=== PATIENT | female | born 1935 | race Caucasian/White ===

== ENCOUNTER 2018-12-20 16:19 | Inpatient (IN) ==
--- NOTE | 2018-12-20 16:41 | ERNOTE ---
Lower Extremity HPI - Narrative Date of Service: 12/20/18 - General Lower Extremities Pain: leg: left Time Seen by Provider: 12/20/18 16:19 Source: patient Exam Limitations: no limitations - Immun/Allergies/Home Medications Immunizations: IMMUNIZATION HX Immunizations Up to Date Yes History of Influenza Vaccine Yes Hx Pneumococcal Vaccination Yes Allergies/Adverse Reactions: Allergies Allergy/AdvReac Type Severity Reaction Status Date / Time No Known Allergies Allergy Verified 12/20/18 16:24 Home Medications: HOME MEDICATIONS Atenolol [Tenormin] 50 mg PO DAILY 06/30/15 [Last Taken 07/07/15 07:00] Aspirin [Aspirin Enteric Coated] 325 mg PO DAILY 07/02/15 [Last Taken 06/30/15] Beta-Carotene(A) W-C , E/Min [Ocuvite] 1 tab PO DAILY 07/02/15 [Last Taken Unknown] Calcium Carbonate/Vitamin D3 [Calcium 600 + D Tablet] 2 each PO DAILY 07/02/15 [Last Taken Unknown] [place]-3 Fatty Acids/Fish Oil [Fish Oil 1,000 mg Capsule] 1 each PO DAILY 07/02/15 [Last Taken Unknown] Sennosides/Psyllium Husk [Senna Prompt Capsule] 1 each PO Q2D 07/02/15 [Last Taken Unknown] Amlodipine Besylate 20 mg PO DAILY 02/02/16 [Last Taken Unknown] - Pain Score Pain Score #1 Pain Score: 3 - History of Present Illness Narrative: The patient is a 83 year old female who presents for left leg pain after fall which occurred 1 hour [employer]. There are associated symptoms of exposure to elements for 1 hour after fall. The patient reports left lower extremity pain, 3/10. There are alleviating factors of immobilization. There are aggravating factors of movement to left lower extremity. Previous treatments have included: received Fentanyl 150mcg via EMS. The past medical history includes: HTN and anxiety. The social history is positive for former smoker. The patient has had no ill contacts. Patient states she was walking outside her home when she slipped on the ice falling on left hip. Patient denies recall of striking head or LOC. Patient states she was unable to get up and laid on the ground exposed to the elements for approximately 1 hour before a neighbor found her. Occurred: just prior to arrival Location of Incident: home Method of Injury: Reports: fell Reason for Fall: Reports: slipped Loss of Consciousness: Reports: no loss of consciousness Other Injuries: Reports: none Review of Systems - Review of Systems Constitutional: Present: no symptoms reported. Absent: recent illness, fever, fatigue EYE: Present: no symptoms reported ENT: Present: no symptoms reported. Absent: ear pain, nasal drainage, sore throat Respiratory: Present: no symptoms reported. Absent: shortness of breath, cough Cardiology: Present: no symptoms reported. Absent: chest pain Gastrointestinal/Abdominal: Present: no symptoms reported. Absent: nausea, vomiting, diarrhea, abdominal pain Genitourinary: Present: no symptoms reported. Absent: dysuria Musculoskeletal: Present: joint pain. Absent: back pain, neck pain Skin: Present: no symptoms reported. Absent: rash Neurological: Present: no symptoms reported. Absent: headache, numbness, tingling Endocrine: Present: no symptoms reported Hematologic/Lymphatic: Present: no symptoms reported Psych: Present: no symptoms reported All Other Systems: All systems neg except as marked Social History: Preferred Language Maori Do you have any congregational or No cultural preference? Smoking Status Former smoker Have you smoked in the past 12 No months Do you dip or chew tobacco No Abuse History No History of abuse Psych History Hx of Anxiety Alcohol Use none Drug Use none No Social History Section defined Physical Exam - Physical Exam General Appearance: Present: wd/wn, alert, mild distress, crying Head Exam: Present: normal inspection, no evidence of injury, no tenderness w palpation Eye Exam: Normal inspection: bilateral, PERRL: bilateral, EOMI: bilateral Neck: Present: normal inspection, nontender, full range of motion - after removal from backboard and clearance with CT cervical Respiratory: Present: no respiratory distress, normal breath sounds, no accessory muscle use, chest nontender, lungs clear Cardiovascular/Chest: Present: no murmur, bradycardia Peripheral Pulses: N=norm/S=strong/W=weak/B=bound/A=absent: Dorsalis-pedis (L): Normal Gastrointestinal/Abdominal: Present: normal bowel sounds, nontender, nondistended, soft, no organomegaly Extremity Exam: Present: bony tenderness - proximal femur, deformity noted, other - shortening and external rotation of left lower extremity Neurological Exam: Present: alert, oriented, normal mood/affect, no motor/sensory deficits Skin Exam: Present: normal color, warm/dry Progress - Date and Time Seen: Date and Time: 12/20/18 17:44 Patient removed from backboard. No vertebral pain. No wounds. Slight erythema to upper back and over coccyx but blanchable with cap refill < 3 sec. 12/20/18 17:58 Notified Lance BASS of left displaced femur fracture. 12/20/18 18:44 Discussed case with Lance BASS and will plan for surgical intervention to left femur fracture tomorrow am pending medical clearance. Discussed case with and notified of orthopedic plan. Patient will be admitted for femur fracture and continued monitoring. - Results and Orders Patient's Lab Results:: I have reviewed the patient's lab results. - Vital Signs Patient's Vital Signs:: I have reviewed the patient's vital signs. Vital Signs: Vital Signs 12/20/18 16:20 Temperature 36.6 C Pulse Rate 57 L Respiratory Rate 15 Blood Pressure 133/118 H O2 Sat by Pulse Oximetry 97 - EKG EKG #1 EKG: NSR - bradycardia P54, RBBB EKG read: Reviewed by me - X-Ray X-Ray #1 X-Ray: femur Interpretation: Reviewed by me X-ray Comments: X-RAY REPORT ~[id number] RAD/Femur 2 Views LT *~ Exam Date: 12/20/2018 16:21 Ordering Physician: Ana ROLON HISTORY/INDICATION: fall, deformity Additional history from technologist: Slipped fell on ice today. Pain in left leg. Left hip deformity TECHNIQUE: AP and lateral views of the Left Femur. 4 images. COMPARISONS: None available. Femur 2 Views LT * There is a comminuted fracture of the proximal left femur, at the intertrochanteric/subtrochanteric location. The fracture at the subtrochanteric region appears to demonstrate a spiral morphology and based on these images, there may be a rotational component to the displacement of the distal fragment. There is no evidence for dislocation at the left hip or the left knee. Soft tissue swelling noted at the proximal thigh. IMPRESSION: Comminuted, displaced fracture of the left proximal femur centered at the intertrochanteric/subtrochanteric region as discussed above. Electronically signed by Francy Garcia M.D.. X-Ray #2 X-Ray: pelvis Interpretation: Reviewed by me X-ray Comments: X-RAY REPORT ~[id number] RAD/Pelvis 1 View *~ Exam Date: 12/20/2018 16:47 Ordering Physician: Ana ROLON HISTORY/INDICATION: 83 years old Female fall Additional history from technologist: Slipped fell on ice today. Pain in left leg. Left hip deformity TECHNIQUE: Single AP image of the pelvis. COMPARISONS: None available. Pelvis 1 View * There is a comminuted, displaced and angulated fracture of the proximal left femur likely at the intertrochanteric/subtrochanteric region. The bony pelvis appears to be grossly intact. Overlying bowel gas obscures some the bony details of the sacrum and the iliac wings. There is no evidence for dislocation or diastases of the joints. Degenerative changes of the lower lumbar spine noted. IMPRESSION: 1. Comminuted intertrochanteric/subtrochanteric left femoral fracture as discussed above. 2. No evidence for displaced bony pelvic fracture. Electronically signed by Francy Garcia M.D.. X-Ray #3 X-Ray: chest Interpretation: Reviewed by me X-ray Comments: X-RAY REPORT ~[id number] RAD/Chest Single View *~ Exam Date: 12/20/2018 16:47 Ordering Physician: Ana ROLON HISTORY: fall fall, left proximal femoral fracture. TECHNIQUE: Single supine AP view of the chest was obtained . COMPARISONS: No prior study available. FINDINGS: Chest Single View *: Normal inflation of lungs. No definite consolidation. Calcified granulomas of the lungs noted. Pulmonary vasculature is normal. No pneumothorax or pleural fluid collections apparent. Cardiac size within normal limits for AP technique. Moderate tortuosity of the thoracic aorta with calcification suggestive of atherosclerosis. Trachea is in normal position given patient positioning. Osseous structures are grossly intact. Patient has a dextroconvex scoliosis of the mid to lower thoracic spine. Patient has surgical changes of the left shoulder. IMPRESSION: 1. No acute cardiopulmonary findings. 2. Thoracic aortic atherosclerotic disease. 3. Additional comments are as above. Electronically signed by Francy Garcia M.D.. - CT/Ultrasound CT/Ultrasound Narrative: X-RAY REPORT ~[id number] CT/CT Head W/O *~ Exam Date: 12/20/2018 16:21 Ordering Physician: Ana ROLON HISTORY: fall Additional history from technologist: fall on ice, did not hit head, no loc, pt on backboard TECHNIQUE: Multiple noncontrast axial CT images of the head were obtained. Dose reduction techniques using the adjustment of the mA and/or kV according to patient size and/or use of AEC or iterative reconstruction were used in the acquisition of this exam. COMPARISON: 02/02/2016 FINDINGS: CT Head W/O *: Age-related cortical atrophy and periventricular white matter chronic ischemic changes are present. Intracranial atherosclerotic calcifications noted. There is an asymmetric area of decreased attenuation in the right occipital lobe seen best on series 3 image 20. Similar findings seen previously and most likely represents area of encephalomalacia versus a asymmetrically prominent sulcus. No acute intracranial hemorrhage. No midline shift or herniation. Vargas and white matter differentiation is grossly intact. No obvious soft tissue swelling or scalp hematoma noted. Skull grossly intact, without signs of depressed skull fracture. Visualized portions of the paranasal sinuses are clear. Mastoid air cells are grossly clear. IMPRESSION: 1. No acute intracranial hemorrhage or mass effect. 2. Additional comments as above. Electronically signed by Francy Garcia M.D.. X-RAY REPORT ~[id number] CT/CT Cervical W/O *~ Exam Date: 12/20/2018 16:21 Ordering Physician: Ana Lewis [employer]PERVISOR HISTORY: fall Additional history from technologist: fall on ice, did not hit head, no loc, pt on backboard TECHNIQUE: Multiple noncontrast axial CT images of the cervical spine were obtained. Sagittal and coronal reconstructed images were also submitted for interpretation. Dose reduction techniques using the adjustment of the mA and/or kV according to patient size and/or use of AEC or iterative reconstruction were used in the acquisition of this exam. COMPARISON: No previous study available. FINDINGS: CT Cervical W/O *, with Coronal and Sagittal Reconstructions: Axial images demonstrate no definable fracture lucency or cortical discontinuity. Decreased mineralization of bone suggestive of underlying osteopenia or osteoporosis. Sagittal reconstructions demonstrate grossly normal craniocervical junction. Atlantodens interval demonstrates degenerative changes without abnormal widening. Prevertebral soft tissues are unremarkable. There is reversal of the normal lordotic curvature of the cervical spine with the apex of the curvature at C3-C4. Vertebral bodies maintain their normal height without evidence for compression fracture. There is no retropulsion of the posterior cortex. Mult ilevel disc space narrowing noted throughout the cervical spine, predominantly affecting the C4-C5, C5-C6, C6-C7 levels, and secondarily effecting the C3-C4 level. There is approximately 3 mm of anterior subluxation of C3 on C4 vertebral body. Patient has asymmetric left-sided uncovertebral osteophytes encroaching into the left-sided neural foramina at C2-C3, C3-C4, C4-C5, and C5-C6 levels. Facet joints are in normal alignment. Patient has predominantly left-sided facet joint degenerative arthropathy, especially at the C3-C4 level. Spinous processes are intact. Coronal reconstructions demonstrate intact C2 dens. Normal articulation of the C1 lateral masses with C2 and the occipital condyles. Lung apices are clear. Soft tissue structures are grossly unremarkable other than vascular calc ifications along the carotid arteries. IMPRESSION: 1. No evidence of acute cervical spine fracture. 2. Anterior subluxation of C3 on C4 vertebral body which is likely secondary due to underlying degenerative disc disease and asymmetric left-sided facet joint degenerative arthropathy, however consider possible soft tissue/ligamentous injury clinically. 3. Multilevel cervical spine degenerative disc disease, and facet joint degenerative arthropathy as discussed above. 4. Reversal normal lordosis which can be due to muscle spasm/pain. Clinical correlation is still recommended. If there is a persistent clinical concern for injury, consider further evaluation by MRI. Electronically signed by Francy Garcia M.D.. - Progress/Reassessment Chief Complaint: Lower Extremity Pain/ Injury Departure Clinical Impression: Fracture, proximal femur Qualifiers: Encounter type: initial encounter Fracture type: closed Laterality: left Qualified Code(s): S72.002A - Fracture of unspecified part of neck of left femur, initial encounter for closed fracture Hypertension Qualifiers: Hypertension type: essential hypertension Qualified Code(s): I10 - Essential (primary) hypertension - Departure Disposition: Still a patient Condition: Fair
[2018-12-20 16:46] LABS: Hematocrit 41.5 % (37.0-47.0); Hemoglobin 13.9 gm/dL (12.5-16.0); Mean Cell Volume 94.3 fl (78-100); Mean Corpuscular Hemoglobin 31.6 pg (27-31); Mean Corpuscular Hgb Conc 33.5 g/dl (32-36); Mean Platelet Volume 8.8 fl (8-12.5); Neutrophil # 9.5 K/mm3 (1.3-6.0); Neutrophil % 83.3 % (42-75.0); Platelet Count 185 K/mm3 (150-450); Red Cell Distribution Width 12.1 % (11.5-14.0); White Blood Count 11.5 K/mm3 (4.0-10.5)
[2018-12-20 16:58] LABS: Anion Gap 12.1 mmol/L (6.8-13.8); BUN/Creatinine Ratio 32.9 (9.0-21.6); Bilirubin, Total 0.3 mg/dL (0.0-1.1); Ca. Corrected For Albumin 9.1 mg/dL (8.4-10.2); Calcium * 9.4 mg/dL (7.9-10.9); Carbon Dioxide 29.4 mmol/L (24-32.6); Potassium 4.5 mmol/L (3.4-4.6); Total Protein 7.6 gm/dL (6.2-8.2)
[2018-12-20] MEDS ORDERED: MORPHINE SULFATE 2 MG/ML DISP.SYRIN IV ONE (17:25)
[2018-12-20] MEDS ORDERED: NORMAL SALINE 1,000 ML IV PRN (18:48)
[2018-12-20 19:04] LABS: Urine Bilirubin Negative (NEGATIVE); Urine Blood Negative /ul (NEGATIVE); Urine Ketone Negative (NEGATIVE); Urine Nitrite Negative (NEGATIVE); Urine Protein Negative (NEGATIVE); Urine Urobilinogen Normal (NORMAL); Urine pH 7.5 pH (5.0-7.0)
[2018-12-20 19:20] LABS: Urine Appearance Clear (CLEAR); Urine Color Pale Yellow; Urine WBC 0-5 /hpf (0-5)
[2018-12-20 19:21] LABS: Urine Amorphous Sediment TRACE (NONE-FEW); Urine Bacteria TRACE; Urine RBC 0-5 /hpf (0-5)
--- NOTE | 2018-12-20 19:52 | CONS ---
[facility] - General Date of Service: 12/20/18 Narrative: 83-year-old female status post fall at her home. Patient notes she was walking of her ramp at her home when she got to the bottom of her railing ended and she slipped on the ice and fell. She laid outside for approximately 1 hour before being found and brought to the ER. She notes her pain is a 4/10 currently. She notes her pain is worse with movement and better with rest. She notes no other current symptoms. Source: patient - History of Present Illness Allergies/Adverse Reactions: Allergies No Known Allergies Allergy (Verified 12/20/18 19:47) Home Medications: Home Medications Medication Instructions Recorded Last Taken Atenolol [Tenormin] 50 mg PO DAILY 06/30/15 07/07/15 07:00 Aspirin [Aspirin Enteric Coated] 325 mg PO DAILY 07/02/15 06/30/15 Beta-Carotene(A) W-C , E/Min 1 tab PO DAILY 07/02/15 Unknown [Ocuvite] Calcium Carbonate/Vitamin D3 2 each PO DAILY 07/02/15 Unknown [Calcium 600 + D Tablet] [place]-3 Fatty Acids/Fish Oil [Fish 1 each PO DAILY 07/02/15 Unknown Oil 1,000 mg Capsule] Sennosides/Psyllium Husk [Senna 1 each PO Q2D 07/02/15 Unknown Prompt Capsule] Amlodipine Besylate 20 mg PO DAILY 02/02/16 Unknown Procedures Application of splint (08/04/01) Closure of skin and subcutaneous tissue of other sites (08/02/02) Open reduction of fracture with internal fixation, other specified bone (07/07/15) Reposition Left Scapula with Internal Fixation Device, Open Approach (07/07/15) Physical Examination - Exam Vital Signs: Vital Signs - Last Taken Temp 36.6 C 12/20/18 16:20 Pulse 53 L 12/20/18 17:49 Resp 13 12/20/18 17:49 BP 127/68 12/20/18 17:49 Pulse Ox 92 L 12/20/18 17:49 O2 Oxygen Delivery Method Room Air Constitutional: Present: Alert, Cooperative, No distress Respiratory: Present: no respiratory distress Extremity: Present: other - Left lower extremity--> no obvious wounds, sensation intact to light touch, distal pulses 2+, 5/5 plantar flexion/dorsiflexion of her foot, diffuse tenderness to palpation about her left hip Appearance: Present: appropriate appearance Eye contact: Present: cooperative - Results and Findings: Narrative: - 83-year-old female status post a fall with a left proximal femur fracture -Discussed with patient conservative versus surgical intervention including risks versus benefits including but not limited to infection, bleeding, DVT, continued pain, hardware failure, heart attack, stroke. Patient wishes to proceed with surgical intervention on 12/21/2018. Patient will undergo evaluation by internal medicine for clearance for surgery. Patient will maintain nonweigh tbearing status until postoperatively, she can be given pain medication as needed. She'll be nothing by mouth after midnight on 12/20/2018. - Lab/Microbiology results last 24 hrs: Abnormal/Pending Laboratory Last 24 HRS 12/20/18 12/20/18 12/20/18 18:47 16:35 16:35 WBC 11.5 H MCH 31.6 H Immature Gran # (Auto) 0.04 H Neutrophils % 83.3 H Lymphocytes % 9.5 L Neutrophils # 9.5 H Lymphocytes # 1.09 L BUN 26 H BUN/Creatinine Ratio 32.9 H Random Glucose 137 H Urine Glucose (UA) 100 H - Assessments/Findings (1) Fracture, proximal femur Problem: Acute Qualifiers: Encounter type: initial encounter Fracture type: closed Laterality: left Qualified Code(s): S72.002A - Fracture of unspecified part of neck of left femur, initial encounter for closed fracture
[2018-12-20] MEDS ORDERED: diphenhydrAMINE HCL 25 MG CAPSULE PO PRN (21:28)
[2018-12-20] MEDS ORDERED: PSYLLIUM HUSK PO SCH (21:30)
[2018-12-20] MEDS ORDERED: ACETAMINOPHEN PO PRN (21:30)
[2018-12-20] MEDS ORDERED: [UNRECOGNIZED DRUG - OTHER] PO PRN (21:30)
[2018-12-20] MEDS ORDERED: SENNOSIDES PO SCH (21:30)
[2018-12-20] MEDS ORDERED: DIPHENHYDRAMINE PO PRN (21:30)
--- NOTE | 2018-12-20 21:43 | HP ---
Chief Complaint - Chief Complaint Date of Service: 12/20/18 Time of Service: 21:34 Chief Complaint: Pain in L. femur, cold exposure. History of Present Illness: Padmini Byrne is an 83-year-old female who is outside her home, slipped on the ice and fell, and laid there for about an hour in the rigid whether before neighbor found her and summoned help. Surprisingly she was not hypothermic. She was brought to the hospital evaluated and x-rayed and found to have a fracture of the left femur. Orthopedics has been notified and they planned to take her to surgery about 8:00 tomorrow morning. Otherwise she enjoys good health. Medical History (Last Updated 12/20/18 @ 20:29 by Isabela York) Hypertension Fracture dislocation of finger Shoulder contusion Surgical History: Surgical History (Last Updated 12/20/18 @ 20:28 by Isabela York) History of shoulder surgery (Acute) History of appendectomy History of shoulder surgery Hx of cholecystectomy Family History: Family History (Last Reviewed 12/20/18 @ 20:27 by Isabela York) Other Patient's father is Patient's mother is Social History: Preferred Language Turkmen Do you have any evangelical or Yes: druze/methodest cultural preference? Smoking Status Never smoker Have you smoked in the past 12 No months Do you dip or chew tobacco No Abuse History No History of abuse Psych History Hx of Anxiety Alcohol Use none Drug Use none No Social History Section defined Review Of Systems (GEN) - Review of Systems EENTM: Present: No Symptoms Reported Respiratory: Present: No Symptoms Reported Cardiac: Present: No Symptoms Reported Abdominal: Present: Constipation Genitourinary: Present: No Symptoms Reported Musculoskeletal: Present: Other - Left femur pain Neurological: Present: No Symptoms Reported Skin: Present: No Symptoms Reported Endocrine: Present: No Symptoms Reported Immunizations: IMMUNIZATION HX Immunizations Up to Date Yes History of Influenza Vaccine Yes Hx Pneumococcal Vaccination Yes Allergies/Adverse Reactions: Allergies Allergy/AdvReac Type Severity Reaction Status Date / Time No Known Allergies Allergy Verified 12/20/18 20:27 Home Medications: HOME MEDICATIONS Beta-Carotene(A) W-C , E/Min [Ocuvite] 1 tab PO DAILY 07/02/15 [Last Taken Unknown] Calcium Carbonate/Vitamin D3 [Calcium 600 + D Tablet] 2 each PO DAILY 07/02/15 [Last Taken Unknown] [place]-3 Fatty Acids/Fish Oil [Fish Oil 1,000 mg Capsule] 1 each PO DAILY 07/02/15 [Last Taken Unknown] Sennosides/Psyllium Husk [Senna Prompt Capsule] 1 each PO Q2D 07/02/15 [Last Taken Unknown] Amlodipine Besylate 20 mg PO DAILY 02/02/16 [Last Taken Unknown] Acetaminophen/Diphenhydramine [Tylenol Pm Ex-Strength Caplet] 1 ea PO PRN PRN 12/20/18 [Last Taken Unknown] Aspirin [Lo-Dose Aspirin EC] 81 mg PO DAILY 12/20/18 [Last Taken Unknown] Exam - Exam Vital Signs: Vital Signs - Last Taken Temp 36.5 C 12/20/18 19:47 Pulse 57 L 12/20/18 19:47 Resp 18 12/20/18 19:47 BP 138/52 12/20/18 19:47 Pulse Ox 95 12/20/18 19:47 Constitutional: Present: Alert, Oriented x3, Cooperative, Well developed, Well nourished, Mild distress, Elderly ENT Exam: Present: normal ENT inspection, hearing grossly normal, pharynx normal, TMs normal Eye Exam: bilateral eye: normal inspection, PERRL, EOMI Neck: Present: non-tender, full range of motion, supple, normal inspection, trachea midline Back Exam: Present: normal inspection, no CVA tenderness, no vertebral tenderness Breasts: Present: Exam deferred Respiratory: Present: chest non-tender, lungs clear, normal breath sounds, no respiratory distress, no accessory muscle use Cardiovascular/Chest: Present: normal peripheral pulses, regular rate, rhythm, no chest tenderness, no edema, no gallop, no JVD, no murmur, no rub Peripheral Pulses: carotid (R): 2+, carotid (L): 2+, radial (R): 2+, radial (L): 2+ Abdomen: Present: Normal bowel sounds, soft, nontender, nondistended, no rebound tenderness, no hepatospenomegaly, no masses /Rectal: Present: Exam deferred, External genitalia normal, discharge Extremity: Present: normal range of motion, non-tender, normal inspection, no pedal edema, no calf tenderness, normal capillary refill Skin Exam: Present: normal color, warm/dry, no cyanosis Lymphatic: Present: no adenopathy, axilla node tender (R) Neurologic: Present: print inspector II-XII nml as tested, no motor/sensory deficits, alert, normal mood/affect, oriented x 3 Appearance: Present: appropriate appearance, appropriate insight, neat, no memory impairment Eye contact: Present: cooperative, good eye contact, normal speech Thoughts: Present: normal thought pattern, no apparent hallucination Diagnostic Studies: Abnormal Lab Results 12/20/18 12/20/18 12/20/18 Range/Units 16:35 16:35 18:47 WBC 11.5 H (4.0-10.5) K/mm3 MCH 31.6 H (27-31) pg Immature Gran # (Auto) 0.04 H (0.000-0.0310) K/mm3 Neutrophils % 83.3 H (42-75.0) % Lymphocytes % 9.5 L (20-51) % Neutrophils # 9.5 H (1.3-6.0) K/mm3 Lymphocytes # 1.09 L (1.5-3.5) k/mm3 BUN 26 H (3-23) mg/dL BUN/Creatinine Ratio 32.9 H (9.0-21.6) Random Glucose 137 H (70-110) mg/dL Urine Glucose (UA) 100 H (NEGATIVE) mg/dL Laboratory Results WBC 11.5 K/mm3 (4.0-10.5) H 12/20/18 16:35 RBC 4.40 M/mm3 (4.2-5.4) 12/20/18 16:35 Hgb 13.9 gm/dL (12.5-16.0) 12/20/18 16:35 Hct 41.5 % (37.0-47.0) 12/20/18 16:35 MCV 94.3 fl (78-100) 12/20/18 16:35 MCH 31.6 pg (27-31) H 12/20/18 16:35 MCHC 33.5 g/dl (32-36) 12/20/18 16:35 RDW 12.1 % (11.5-14.0) 12/20/18 16:35 Plt Count 185 K/mm3 (150-450) 12/20/18 16:35 MPV 8.8 fl (8-12.5) 12/20/18 16:35 Immature Gran % (Auto) 0.30 % (0.001-0.429) 12/20/18 16:35 Immature Gran # (Auto) 0.04 K/mm3 (0.000-0.0310) H 12/20/18 16:35 Neutrophils % 83.3 % (42-75.0) H 12/20/18 16:35 Lymphocytes % 9.5 % (20-51) L 12/20/18 16:35 Monocytes % 5.9 % (0.0-9) 12/20/18 16:35 Eosinophils % 0.7 % (0.0-3.0) 12/20/18 16:35 Basophils % 0.3 % (0.0-1.0) 12/20/18 16:35 Nucleated RBC % 0.0 k/mm3 (0-1) 12/20/18 16:35 Neutrophils # 9.5 K/mm3 (1.3-6.0) H 12/20/18 16:35 Lymphocytes # 1.09 k/mm3 (1.5-3.5) L 12/20/18 16:35 Monocytes # 0.7 k/mm3 (0.0-1.0) 12/20/18 16:35 Eosinophils # 0.1 k/mm3 (0.0-0.7) 12/20/18 16:35 Absolute Basophils 0.0 k/mm3 (0.0-0.1) 12/20/18 16:35 Sodium 137 mmol/L (132-142) 12/20/18 16:35 Plasma Sodium 138 mmol/L (130-142) 12/20/18 16:35 Potassium 4.5 mmol/L (3.4-4.6) 12/20/18 16:35 Chloride 100 mmol/L (97-106) 12/20/18 16:35 Carbon Dioxide 29.4 mmol/L (24-32.6) 12/20/18 16:35 Anion Gap 12.1 mmol/L (6.8-13.8) 12/20/18 16:35 BUN 26 mg/dL (3-23) H 12/20/18 16:35 Creatinine 0.79 mg/dL (0.4-1.4) 12/20/18 16:35 Est GFR (Non-Af Amer) 74 mL/min (60-130) 12/20/18 16:35 BUN/Creatinine Ratio 32.9 (9.0-21.6) H 12/20/18 16:35 Random Glucose 137 mg/dL (70-110) H 12/20/18 16:35 Calcium 9.4 mg/dL (7.9-10.9) 12/20/18 16:35 Calcium Adj for Albumin 9.1 mg/dL (8.4-10.2) 12/20/18 16:35 Total Bilirubin 0.3 mg/dL (0.0-1.1) 12/20/18 16:35 AST 24 U/L (0-48) 12/20/18 16:35 ALT 21 U/L (19-67) 12/20/18 16:35 Alkaline Phosphatase 73 U/L (50-170) 12/20/18 16:35 Creatine Kinase 106 U/L (0-259) 12/20/18 16:00 Total Protein 7.6 gm/dL (6.2-8.2) 12/20/18 16:35 Albumin 4.0 gm/dl (3.4-5.0) 12/20/18 16:35 Urine Color Pale yellow 12/20/18 18:47 Urine Appearance Clear (CLEAR) 12/20/18 18:47 Urine pH 7.5 pH (5.0-7.0) 12/20/18 18:47 Ur Specific [place] 1.020 SP.GR. (1.005-1.010) 12/20/18 18:47 Urine Protein Negative mg/dL (NEGATIVE) 12/20/18 18:47 Urine Glucose (UA) 100 mg/dL (NEGATIVE) H 12/20/18 18:47 Urine Ketones Negative mg/dL (NEGATIVE) 12/20/18 18:47 Urine Blood Negative /ul (NEGATIVE) 12/20/18 18:47 Urine Nitrate Negative (NEGATIVE) 12/20/18 18:47 Urine Bilirubin Negative mg/dl (NEGATIVE) 12/20/18 18:47 Urine Urobilinogen Normal EU/dl (NORMAL) 12/20/18 18:47 Ur Leukocyte Esterase Negative /ul (NEGATIVE) 12/20/18 18:47 Urine RBC 0-5 /hpf (0-5) 12/20/18 18:47 Urine WBC 0-5 /hpf (0-5) 12/20/18 18:47 Ur Epithelial Cells None seen /hpf (0-5) 12/20/18 18:47 Amorphous Sediment Trace (NONE-FEW) 12/20/18 18:47 Urine Bacteria Trace (NONE) 12/20/18 18:47 Urine Culture Comments Culture to follow 12/20/18 18:47 Blood Type A Positive 12/20/18 16:35 Antibody Screen Negative 12/20/18 16:35 Assessment/Plan - Narrative Narrative: 1. Prepare for ORIF of left possible femur fracture tomorrow morning 2. Pain management 3. Give 25 mg of diphenhydramine with each at bedtime dose of Tylenol 4. Senokot S 4 prevention of constipation. - Assessment/Plan (1) Fracture, proximal femur Problem: Acute Qualifiers: Encounter type: initial encounter Fracture type: closed Laterality: left Qualified Code(s): S72.002A - Fracture of unspecified part of neck of left femur, initial encounter for closed fracture (2) Insomnia Problem: Acute Qualifiers: Insomnia type: primary Qualified Code(s): F51.01 - Primary insomnia (3) Hypertension Problem: Acute (4) Constipation Problem: Acute
[2018-12-20] MEDS ORDERED: ONDANSETRON HCL/PF 2 MG/ML VIAL IV PRN (21:46)
[2018-12-20] MEDS: MORPHINE SULFATE 4 MG/ML SYRG IV PRN (22:30)
--- NOTE | 2018-12-21 07:17 | ANES ---
Anesthesia Pre Procedure Eval Vitals/Labs: Last Vital Signs Temp 36.6 C 12/21/18 07:04 Pulse 55 L 12/21/18 07:04 Resp 18 12/21/18 07:04 BP 116/32 12/21/18 07:04 Pulse Ox 96 12/21/18 07:04 HOME MEDICATIONS Beta-Carotene(A) W-C , E/Min [Ocuvite] 1 tab PO DAILY 07/02/15 [Last Taken Unknown] Calcium Carbonate/Vitamin D3 [Calcium 600 + D Tablet] 2 each PO DAILY 07/02/15 [Last Taken Unknown] [place]-3 Fatty Acids/Fish Oil [Fish Oil 1,000 mg Capsule] 1 each PO DAILY 07/02/15 [Last Taken Unknown] Sennosides/Psyllium Husk [Senna Prompt Capsule] 1 each PO Q2D 07/02/15 [Last Taken Unknown] Amlodipine Besylate 20 mg PO DAILY 02/02/16 [Last Taken Unknown] Acetaminophen/Diphenhydramine [Tylenol Pm Ex-Strength Caplet] 1 ea PO PRN PRN 12/20/18 [Last Taken Unknown] Aspirin [Lo-Dose Aspirin EC] 81 mg PO DAILY 12/20/18 [Last Taken Unknown] Allergies/Adverse Reactions: Allergies Allergy/AdvReac Type Severity Reaction Status Date / Time No Known Allergies Allergy Verified 12/20/18 20:27 - Planned Procedure Planned Procedure: ORIF hip Medication List Reviewed:: Yes Allergies Verified: Yes Medical History (Last Reviewed 12/21/18 @ 07:16 by Ye Donaldson CRNA) Hypertension Fracture dislocation of finger Shoulder contusion Surgical History (Last Reviewed 12/21/18 @ 07:16 by Ye Donaldson CRNA) History of shoulder surgery (Acute) History of appendectomy History of shoulder surgery Hx of cholecystectomy Family History (Last Reviewed 12/21/18 @ 07:16 by Ye Donaldson CRNA) Other Patient's father is Patient's mother is - Family Anesthesia History Family History:: no untoward family reactions to anesthesia, no familial bleeding tendencies, no family history of clotting disorders, no family history of premature - Airway/Neck/Teeth Teeth Condition: missing Denture Type: Partial upper Mallampatti Score: 3 Thyromental (T-M) distance: > 6 cm Mandibulo Hyoid distance: > 3 cm - Respiratory Respiratory Physical: lungs clear Smoking Status: Never smoker Discussed smoking cessation including day of surgery: No Sleep Apnea currently treated: No Sleep Apnea by current assessment: No Discussed Risks/Treatment of JESÚS: No - Cardiovascular Tolerate Activity: Fair Heart Sounds: S1 & S2, Regular - Anesthesia Assessment and Plan ASA Class: PS, III, E Anesthesia Type Plan: Spinal
[2018-12-21] MEDS ORDERED: ceFAZolin SODIUM 1 GM VIAL IV ONE (07:58)
[2018-12-21] MEDS: RINGER'S SOLUTION,LACTATED 1,000 ML IV PRN ×2 (09:00→09:48)
[2018-12-21] MEDS ORDERED: MAG HYDROX/ALUMINUM HYD/SIMETH 30 ML UDC PO PRN (10:28)
[2018-12-21] MEDS ORDERED: ACETAMINOPHEN 500 MG TABLET PO PRN (10:28)
--- NOTE | 2018-12-21 10:42 | OR ---
Operative Report - Dictated Report Narrative: Date: 12/21/2018 Surgeon: Kana Farooq M.D. Roll Clamp Operator: Lance Richardson PA-C Preoperative diagnosis: Left intertrochanteric femur fracture Postoperative diagnosis: Left intertrochanteric femur fracture Operations and procedures: 1. Open reduction, cephalo-medullary fixation left intertrochanteric femur fracture 2. Intraoperative interpretation of radiographs Anesthesia: Spinal Specimens: None Estimated blood loss: 300 Milliliters Retained implants: [employer] Trigen InterTAN 130 degree size 10 mm by 36 centimeter nail with 95 millimeter lag screw and 90 millimeter compression screw, with distal locking screw Complications: None Indications for procedure: Padmini is an 83-year-old female who slipped and fell outside and landed on the left hip. She was unable to bear weight and laid outside for an hour before being found. She was brought to the [facility] emergency department where workup revealed a displaced left intertrochanteric femur fracture and no other injuries. They were admitted to the hospital after being evaluated in the emergency department. Once the medical provider felt that they were stable for surgical treatment, the risks and benefits alternatives were discussed. The risks of , blood clots, bleeding, infection, nerve/tendon/blood vessel injury, malunion, nonunion, failure of implants, painful implants, arthrosis, and need for additional procedures were discussed. The extremity was marked and consent was obtained on the floor. Procedure: After marking the operative extremity on the floor, the patient was taken to the operating room. A timeout was performed. IV antibiotics consisting of 1 g of Ancef was administered. A spinal anesthetic was induced by anesthesia, and the patient was then placed onto a fracture table with a well-padded perineal post. The non-operative leg was placed in a well-padded well leg delcid in lithotomy position with an SCD on the leg. The operative leg was placed in a well-padded traction boot. Longitudinal traction, internal rotation, flexion, and adduction were utilized in order to preliminarily reduce the fracture. Preliminary images were attained utilizing C-arm in both the AP and lateral views. This confirmed that we had obtained adequate visualization of the fracture as well as reduction. Next the hip was then prepped and draped in a standard sterile fashion. Given the displaced and comminuted nature of the fracture, we elected to perform an open reduction for better fracture alignment. An 8 cm incision was made laterally over the fracture site. Electrocautery was carried down through the subcutaneous fat to the level of the IT band. This was incised longitudinally. Combination of blunt dissection and electrocautery was used to reveal the fracture site. A combination of manual manipulation along with appropriate rotation and manipulation of the leg delcid was used to reduce the fracture. Next, a cerclage cable was placed around the distal aspect of the fracture to aid with preliminary fixation. This was tightened down and found to give decent stability to the fracture. Next, a guidewire was placed percutaneously proximal to the greater trochanter to urmila a starting point at the tip of the greater trochanter centered on the lateral view. This was advanced down to the level below the lesser trochanter. A scalpel was utilized to dissect down to the greater trochanter in order to advance the soft tissue protector down to bone. The entry reamer was then advanced down the proximal femur to the level of the lesser trochanter. The long ball-tipped guidewire was then advanced down the femur to the appropriate position distally at the proximal pole of the patella. The nail length was measured. Sequential reaming of the femoral canal was carried out up to a size 11-1/2 reamer in preparation for a 10 mm diameter nail. The above nail was then selected and impacted into place. The outrigger was utilized in order to confirm the appropriate depth of the nail. Using the alignment device on the outrigger, the guidewire was placed into the femoral head in a center center position on AP and lateral views. A tip apex distance less than 25 mm combined was obtained. Once we felt that we had placed the guidewire in the appropriate position, it was measured. Next the compression screw entry drill was advanced through the lateral cortex. This was then drilled down to the appropriate depth for the compression screw, again confirming that we were within the confines the bone. The derotational bar was then placed and the lag screw was drilled to the appropriate depth. The lag screw was then secured in place ensuring that we were within the confines of the bone. The compression screw was then inserted allowing for compression while releasing the traction on the leg. Using C-arm this was v isualized to allow for compression across the fracture site. Once it was felt we had adequately stabilized the intertrochanteric fracture, the distal interlocking screw was placed in a static position using perfect circles technique. This was confirmed to be the appropriate length and within the nail on both AP and lateral views. The nail was secured allowing for controlled compression and the outrigger was removed. The wounds were then thoroughly irrigated. Final images were obtained. The hip was placed through range of motion and showed no crepitance. The deep fascia and IT band were closed with 0 Vicryl, the subcutaneous tissue with 3-0 Vicryl, and the skin was closed with georges. Sterile dressings of Xeroform, 4 x 4s, ABDs, and Medipore tape were applied. All sponge, sharp, and instrument counts were correct prior to closing the wounds. The patient was then awoken and transferred to the postanesthesia care unit in stable condition.
--- NOTE | 2018-12-21 10:54 | ANES ---
Post Anesthesia Discharge - Transfer of Care Transfer of Care handoff given to nurse: Yes - Discharge from PACU Discharge from PACU when meets criteria: Yes - Discharge to ASU Discharge to ASU-no complications/pt stable: Yes
--- NOTE | 2018-12-21 10:54 | ANES ---
Post Anesthesia Assessment - Vital Signs Vitals: Last Vital Signs Temp 36.0 C 12/21/18 10:45 Pulse 58 L 12/21/18 10:45 Resp 16 12/21/18 10:45 BP 87/41 L 12/21/18 10:45 Pulse Ox 95 12/21/18 10:45 Airway Patency: Normal - Mental Status Level Of Consciousness: Awake - Pain Level Pain Score: 0 - N/V Assessment Nausea/Vomiting Presence: None Dehydration:: No
--- NOTE | 2018-12-21 11:09 | PN ---
Subjective - Date and Time Seen Date: 12/21/18 Time: 11:01 Subjective Narrative: Mrs. Byrne went to surgery this morning and had an ORIF of her proximal femur fracture. It was comminuted in 4 pieces and required a lot of repair but she did well through surgery. Is a modest amount of blood loss. She tolerated procedure well and there've been no complications to this point. She is still sleepy from her anesthetic. She is otherwise stable. Objective - Review of Systems Generalized/Overall Review: Reports: No Symptoms Reported EENTM: Reports: No Symptoms Reported Respiratory: Reports: No Symptoms Reported Cardiac: Reports: No Symptoms Reported Abdominal: Reports: No Symptoms Reported Genitourinary Symptoms: Reports: No Symptoms Reported Musculoskeletal Complaints: Reports: Joint Pain - Status post ORIF of the LAlejandro hip Neurological: Reports: No Symptoms Reported Skin: Reports: No Symptoms Reported Misc: All systems neg except as marked - Vitals Vitals: Last Vital Signs Temp 36.0 C 12/21/18 10:45 Pulse 58 L 12/21/18 10:55 Resp 14 12/21/18 10:55 BP 92/41 12/21/18 10:55 Pulse Ox 95 12/21/18 10:55 - Abnormal Lab Findings Abnormal Lab Findings: Abnormal Lab Results 12/20/18 12/20/18 12/20/18 Range/Units 16:35 16:35 18:47 WBC 11.5 H (4.0-10.5) K/mm3 MCH 31.6 H (27-31) pg Immature Gran # (Auto) 0.04 H (0.000-0.0310) K/mm3 Neutrophils % 83.3 H (42-75.0) % Lymphocytes % 9.5 L (20-51) % Neutrophils # 9.5 H (1.3-6.0) K/mm3 Lymphocytes # 1.09 L (1.5-3.5) k/mm3 BUN 26 H (3-23) mg/dL BUN/Creatinine Ratio 32.9 H (9.0-21.6) Random Glucose 137 H (70-110) mg/dL Urine Glucose (UA) 100 H (NEGATIVE) mg/dL - EKG/Xray Findings EKG: NSR, RBBB, other - sinus bradycardia EKG read: Interp. by me XRAY: hip Interpretation: Reviewed by me - Exam Constitutional: Present: Alert, Oriented x3, Cooperative, Well developed, Well nourished, No distress ENT Exam: Present: normal ENT inspection, hearing grossly normal, pharynx normal, TMs normal Neck: Present: non-tender, full range of motion, supple, normal inspection, trachea midline Respiratory: Present: chest non-tender, lungs clear, normal breath sounds, no respiratory distress, no accessory muscle use Cardiovascular/Chest: Present: normal peripheral pulses, regular rate, rhythm, no chest tenderness, no edema, no gallop, no JVD, no murmur, no rub Abdomen: Present: Normal bowel sounds, soft, nontender, nondistended /Rectal: Present: Exam deferred Extremity: Present: normal range of motion, non-tender, normal inspection, no pedal edema, no calf tenderness Skin Exam: Present: normal color, warm/dry, no cyanosis Lymphatic: Present: no adenopathy, axilla node tender (R) Neurologic: Present: box blank machine feeder II-XII nml as tested Appearance: Present: appropriate appearance, appropriate insight, neat, no memory impairment, denies illness Eye contact: Present: cooperative, good eye contact, normal speech Thoughts: Present: normal thought pattern, no apparent hallucination Cauti Physician Documentation - Urinary Catheter Management Urethral (Vasquez) Cath placed during this visit: yes Urethral Indwelling: Yes Reason for Continuing Indwelling Catheter: Surgical Procedure Date of Insertion: 12/20/18 Time of Insertion: 18:45 Assessment/Plan - Problems/Diagnosis (1) Fracture, proximal femur Problem: Acute Qualifiers: Encounter type: initial encounter Fracture type: closed Laterality: left Qualified Code(s): S72.002A - Fracture of unspecified part of neck of left femur, initial encounter for closed fracture (2) Insomnia Problem: Acute Qualifiers: Insomnia type: primary Qualified Code(s): F51.01 - Primary insomnia (3) Hypertension Problem: Acute Qualifiers: Hypertension type: essential hypertension Qualified Code(s): I10 - Essential (primary) hypertension (4) Constipation Problem: Acute Qualifiers: Constipation type: slow transit constipation Qualified Code(s): K59.01 - Slow transit constipation
[2018-12-21] MEDS: MORPHINE SULFATE 4 MG/ML SYRG IV PRN (11:34)
[2018-12-21] MEDS ORDERED: NORMAL SALINE 1,000 ML IV PRN (11:38)
[2018-12-21] MEDS ORDERED: ENOXAPARIN SODIUM 40 MG/0.4 ML SYRG SC SCH (12:00)
[2018-12-21] MEDS: HYDROcodone/ACETAMINOPHEN 1 EACH TABLET PO PRN ×2 (12:28→20:31)
[2018-12-21] MEDS: amLODIPine BESYLATE 10 MG TABLET PO SCH (13:37)
[2018-12-21] MEDS: ceFAZolin SODIUM 1 GM in DEXTROSE 5 % IN WATER 100 ML IV SCH ×4 (13:42→19:22)
[2018-12-21] MEDS: SENNOSIDES/DOCUSATE SODIUM 1 TAB TABLET PO SCH (20:31)
[2018-12-22] MEDS: ceFAZolin SODIUM 1 GM in DEXTROSE 5 % IN WATER 100 ML IV SCH ×2 (00:21)
[2018-12-22] MEDS: HYDROcodone/ACETAMINOPHEN 1 EACH TABLET PO PRN ×3 (05:54→21:47)
[2018-12-22 06:30] LABS: Mean Corpuscular Hemoglobin 31.7 pg (27-31); Mean Corpuscular Hgb Conc 33.3 g/dl (32-36); Platelet Count 105 K/mm3 (150-450); Red Blood Count 2.21 M/mm3 (4.2-5.4); Red Cell Distribution Width 12.6 % (11.5-14.0); White Blood Count 4.8 K/mm3 (4.0-10.5)
[2018-12-22 06:52] LABS: BUN/Creatinine Ratio 23.4 (9.0-21.6); Calcium * 8.3 mg/dL (7.9-10.9); Carbon Dioxide 27.9 mmol/L (24-32.6); Estimated Creat Clear 59.5; Potassium 3.9 mmol/L (3.4-4.6)
[2018-12-22] MEDS ORDERED: MORPHINE SULFATE 2 MG/ML DISP.SYRIN IV PRN (09:00)
[2018-12-22] MEDS: ENOXAPARIN SODIUM 40 MG/0.4 ML SYRG SC SCH (09:38)
--- NOTE | 2018-12-22 11:57 | PN ---
Subjective - Date and Time Seen Date: 12/22/18 Time: 10:15 Subjective Narrative: Mrs. Byrne is status postop day #1. She is feeling well and having very little discomfort. Her hemoglobin has dropped from 13.9 g preop to 7 g this morning. She is asymptomatic with this anemia. I discussed with her that she is qualifying for packed red blood cells but she wishes to wait until tomorrow and see how she feels have a blood work looks. I told her that if the hemogl obin drops into the sixes that she should take at least 2 units of packed red blood cells and she is in agreement with that. Unless she becomes symptomatic with her anemia today I will not transfuse her today. Otherwise she has no other problems or complaints. I have reconciled her amlodipine back to her usual dose of 10 mg. I spoke with her about who her primary care physician was and she said she really didn't have one locally. Her has seen Dr. Conner and she liked her very well and thinks maybe she would like her as her primary care physician. I'll speak with tomorrow morning and see if she wishes to see her here or have me finish her care here. Objective - Review of Systems Generalized/Overall Review: Reports: No Symptoms Reported EENTM: Reports: No Symptoms Reported Respiratory: Reports: No Symptoms Reported Cardiac: Reports: No Symptoms Reported Abdominal: Reports: No Symptoms Reported Genitourinary Symptoms: Reports: No Symptoms Reported Musculoskeletal Complaints: Reports: Joint Pain - Left hip left, status post ORIF of comminuted left proximal femur fracture Neurological: Reports: No Symptoms Reported Skin: Reports: No Symptoms Reported - Vitals Vitals: Last Vital Signs Temp 36.8 C 12/22/18 09:59 Pulse 76 12/22/18 09:59 Resp 16 12/22/18 09:59 BP 124/44 12/22/18 09:59 Pulse Ox 97 12/22/18 09:59 - Abnormal Lab Findings Abnormal Lab Findings: Abnormal Lab Results 12/22/18 12/22/18 Range/Units 06:15 06:15 RBC 2.21 L (4.2-5.4) M/mm3 Hgb 7.0 L* D (12.5-16.0) gm/dL Hct 21.0 L* D (37.0-47.0) % MCH 31.7 H (27-31) pg Plt Count 105 L (150-450) K/mm3 BUN/Creatinine Ratio 23.4 H (9.0-21.6) Random Glucose 139 H (70-110) mg/dL - Exam Constitutional: Present: Alert, Oriented x3, Cooperative, Well developed, Well nourished, No distress ENT Exam: Present: normal ENT inspection, hearing grossly normal, pharynx normal, TMs normal Neck: Present: non-tender, full range of motion, supple, normal inspection, trachea midline Breasts: Present: Exam deferred Respiratory: Present: chest non-tender, lungs clear, normal breath sounds Cardiovascular/Chest: Present: normal peripheral pulses, regular rate, rhythm, no chest tenderness, no edema, no gallop, no JVD, no murmur, no rub Abdomen: Present: Normal bowel sounds, soft, nontender, nondistended, no rebound tenderness, no hepatospenomegaly, no masses /Rectal: Present: Exam deferred Extremity: Present: normal range of motion, non-tender, normal inspection, no pedal edema, no calf tenderness, normal capillary refill Skin Exam: Present: normal color, warm/dry, no cyanosis, cool/dry Lymphatic: Present: no adenopathy, axilla node tender (R) Neurologic: Present: geomorphologist II-XII nml as tested, no motor/sensory deficits, alert, normal mood/affect, oriented x 3 Appearance: Present: appropriate appearance, appropriate insight, neat, no memory impairment, denies illness Eye contact: Present: cooperative, good eye contact, normal speech Thoughts: Present: normal thought pattern, no apparent hallucination Cauti Physician Documentation - Urinary Catheter Management Urethral (Vasquez) Urethral Indwelling: Yes Date of Insertion: 12/20/18 Time of Insertion: 18:45 Assessment/Plan Plan Narrative: 1. Recheck hemoglobin and hematocrit tomorrow morning and is already ordered by Dr. Farooq. 2. Type and hold 2 units of packed red blood cells. If hemoglobin drops below 7 mg tomorrow then transfused 2 units of packed red blood cells. If she becomes symptomatic today from her anemia then we'll transfuse her today. Otherwise she would like to wait to see how her blood count is tomorrow. Since she is asymptomatic I agree that that is a reasonable approach. 3. Decrease amlodipine from 20 mg to 10 mg per day 4. I'll speak with Dr. Velasquez about her becoming her PCP tomorrow morning. - Problems/Diagnosis (1) Fracture, proximal femur Problem: Acute Qualifiers: Encounter type: initial encounter Fracture type: closed Laterality: left Qualified Code(s): S72.002A - Fracture of unspecified part of neck of left femur, initial encounter for closed fracture (2) Insomnia Problem: Acute Qualifiers: Insomnia type: primary Qualified Code(s): F51.01 - Primary insomnia (3) Hypertension Problem: Acute Qualifiers: Hypertension type: essential hypertension Qualified Code(s): I10 - Essential (primary) hypertension (4) Constipation Problem: Acute Qualifiers: Constipation type: slow transit constipation Qualified Code(s): K59.01 - Slow transit constipation
[2018-12-22] MEDS: amLODIPine BESYLATE 10 MG TABLET PO SCH (12:15)
--- NOTE | 2018-12-22 12:53 | PN ---
Subjective - Date and Time Seen Date: 12/22/18 Time: 12:46 Subjective Narrative: Patient reports no acute events, her pain is well controlled. She has no other significant compliants currently. She notes she has been able to transition from bed to chair with assistance. Objective - Vitals Vitals: Last Vital Signs Temp 36.8 C 12/22/18 09:59 Pulse 76 12/22/18 09:59 Resp 16 12/22/18 09:59 BP 124/44 12/22/18 09:59 Pulse Ox 97 12/22/18 09:59 - Abnormal Lab Findings Abnormal Lab Findings: Abnormal Lab Results 12/22/18 12/22/18 Range/Units 06:15 06:15 RBC 2.21 L (4.2-5.4) M/mm3 Hgb 7.0 L* D (12.5-16.0) gm/dL Hct 21.0 L* D (37.0-47.0) % MCH 31.7 H (27-31) pg Plt Count 105 L (150-450) K/mm3 BUN/Creatinine Ratio 23.4 H (9.0-21.6) Random Glucose 139 H (70-110) mg/dL - Exam Constitutional: Present: Alert, Cooperative, No distress Respiratory: Present: no respiratory distress Extremity: Present: other - LLE--> bandages have mild drainage on middle bandage, no significant erythema, no drainage on other dressing, mild ttp diffusely about her hip, SILT, distal cap refill brisk, 5/5 PF/DF Eye contact: Present: cooperative Thoughts: Present: normal thought pattern Cauti Physician Documentation - Urinary Catheter Management Urethral (Vasquez) Urethral Indwelling: Yes Date of Insertion: 12/20/18 Time of Insertion: 18:45 Date of Removal: 12/22/18 Time of Removal: 12:04 Assessment/Plan Plan Narrative: -83 y/o female post-op day #1 s/p left cephalomedullary nailing of proximal femur fracture - WBAT with assistance PRN - PT/OT progress as tolerated - PO diet as tolerated - PO pain medication PRN - DVT prophylaxis: lovenox, SCDs in bed, josr hose - Monitor surgical dressing, change PRN - Hgb 7.0, asymptomatic currently, will continue to monitor, consider transfusion per medicine - Chronic medical conditions per medicine - Problems/Diagnosis (1) Fracture, proximal femur Problem: Acute Qualifiers: Encounter type: initial encounter Fracture type: closed Laterality: left Qualified Code(s): S72.002A - Fracture of unspecified part of neck of left femur, initial encounter for closed fracture
[2018-12-22] MEDS: METHYLPREDNISOLONE 4 MG TABLET PO SCH ×4 (12:54→21:46)
[2018-12-22] MEDS ORDERED: METHYLPREDNISOLONE 4 MG/TAB TAB.DS.PK PO SCH (13:00)
[2018-12-22] MEDS: SENNOSIDES/DOCUSATE SODIUM 1 TAB TABLET PO SCH (21:46)
[2018-12-23] MEDS: HYDROcodone/ACETAMINOPHEN 1 EACH TABLET PO PRN ×2 (05:24→13:23)
[2018-12-23 05:51] LABS: Mean Cell Volume 95.1 fl (78-100); Mean Corpuscular Hgb Conc 33.7 g/dl (32-36); Mean Platelet Volume 9.3 fl (8-12.5); Platelet Count 120 K/mm3 (150-450); Red Blood Count 2.06 M/mm3 (4.2-5.4); Red Cell Distribution Width 12.6 % (11.5-14.0); White Blood Count 6.5 K/mm3 (4.0-10.5)
[2018-12-23 05:55] LABS: Anion Gap 9.8 mmol/L (6.8-13.8); BUN/Creatinine Ratio 17.9 (9.0-21.6); Calcium * 8.3 mg/dL (7.9-10.9); Carbon Dioxide 29.3 mmol/L (24-32.6); Estimated Creat Clear 56.9; Potassium 4.1 mmol/L (3.4-4.6)
[2018-12-23 05:58] LABS: Hematocrit 19.6 % (37.0-47.0); Hemoglobin 6.6 gm/dL (12.5-16.0)
[2018-12-23] MEDS: METHYLPREDNISOLONE 4 MG TABLET PO SCH ×3 (07:28→16:34)
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
[2018-12-23] MEDS ORDERED: METHYLPREDNISOLONE 4 MG/TAB TAB.DS.PK PO SCH ×2 (09:00→21:00)
[2018-12-23] MEDS: SERTRALINE HCL 100 MG TABLET PO SCH (09:35)
[2018-12-23] MEDS: ENOXAPARIN SODIUM 40 MG/0.4 ML SYRG SC SCH (09:35)
[2018-12-23] MEDS: amLODIPine BESYLATE 10 MG TABLET PO SCH (09:36)
[2018-12-23] MEDS: MAGNESIUM HYDROXIDE 30 ML UDC PO PRN (09:38)
[2018-12-23 20:06] LABS: Hematocrit 27.2 % (37.0-47.0); Hemoglobin 9.3 gm/dL (12.5-16.0)
[2018-12-23] MEDS: SENNOSIDES/DOCUSATE SODIUM 1 TAB TABLET PO SCH (20:37)
[2018-12-23] MEDS ORDERED: METHYLPREDNISOLONE 4 MG TABLET PO SCH (21:00)
[2018-12-24] MEDS: HYDROcodone/ACETAMINOPHEN 1 EACH TABLET PO PRN ×2 (00:16→13:23)
[2018-12-24 05:29] LABS: Hematocrit 26.2 % (37.0-47.0); Hemoglobin 8.9 gm/dL (12.5-16.0); Mean Cell Volume 93.9 fl (78-100); Mean Corpuscular Hemoglobin 31.9 pg (27-31); Mean Platelet Volume 9.3 fl (8-12.5); Neutrophil # 6.5 K/mm3 (1.3-6.0); Neutrophil % 77.5 % (42-75.0); Platelet Count 139 K/mm3 (150-450); Red Blood Count 2.79 M/mm3 (4.2-5.4); Red Cell Distribution Width 13.1 % (11.5-14.0); White Blood Count 8.4 K/mm3 (4.0-10.5)
[2018-12-24 05:38] LABS: Albumin * 2.2 gm/dl (3.4-5.0); Anion Gap 10.1 mmol/L (6.8-13.8); Bilirubin, Total 0.5 mg/dL (0.0-1.1); Ca. Corrected For Albumin 9.5 mg/dL (8.4-10.2); Calcium * 8.4 mg/dL (7.9-10.9); Carbon Dioxide 30.2 mmol/L (24-32.6); Potassium 4.3 mmol/L (3.4-4.6); Total Protein 5.5 gm/dL (6.2-8.2)
[2018-12-24] MEDS ORDERED: METHYLPREDNISOLONE 4 MG TABLET PO SCH ×2 (07:00→21:00)
--- NOTE | 2018-12-24 07:58 | PN ---
Subjective - Date and Time Seen Date: 12/23/18 Time: 08:00 Subjective Narrative: Patient reports no acute events. Pain has improved since yesterday. She has been up and ambulated around her room. Objective - Vitals Vitals: Last Vital Signs Temp 36.9 C 12/24/18 07:02 Pulse 77 12/24/18 07:02 Resp 16 12/24/18 07:02 BP 134/60 12/24/18 07:02 Pulse Ox 95 12/24/18 07:02 - Abnormal Lab Findings Abnormal Lab Findings: Abnormal Lab Results 12/23/18 12/23/18 12/24/18 Range/Units 05:25 08:00 05:15 RBC 2.79 L (4.2-5.4) M/mm3 Hgb 9.3 L 8.9 L (12.5-16.0) gm/dL Hct 27.2 L 26.2 L (37.0-47.0) % MCH 31.9 H (27-31) pg Plt Count 139 L (150-450) K/mm3 Immature Gran % (Auto) 1.30 H (0.001-0.429) % Immature Gran # (Auto) 0.11 H (0.000-0.0310) K/mm3 Neutrophils % 77.5 H (42-75.0) % Lymphocytes % 9.3 L (20-51) % Monocytes % 11.8 H (0.0-9) % Neutrophils # 6.5 H (1.3-6.0) K/mm3 Lymphocytes # 0.78 L (1.5-3.5) k/mm3 Random Glucose (70-110) mg/dL AST (0-48) U/L ALT (19-67) U/L Total Protein (6.2-8.2) gm/dL Albumin (3.4-5.0) gm/dl Crossmatch See Detail 12/24/18 Range/Units 05:15 RBC (4.2-5.4) M/mm3 Hgb (12.5-16.0) gm/dL Hct (37.0-47.0) % MCH (27-31) pg Plt Count (150-450) K/mm3 Immature Gran % (Auto) (0.001-0.429) % Immature Gran # (Auto) (0.000-0.0310) K/mm3 Neutrophils % (42-75.0) % Lymphocytes % (20-51) % Monocytes % (0.0-9) % Neutrophils # (1.3-6.0) K/mm3 Lymphocytes # (1.5-3.5) k/mm3 Random Glucose 132 H (70-110) mg/dL AST 56 H (0-48) U/L ALT 214 H (19-67) U/L Total Protein 5.5 L (6.2-8.2) gm/dL Albumin 2.2 L (3.4-5.0) gm/dl Crossmatch - Exam Constitutional: Present: Alert, Cooperative, No distress Respiratory: Present: no respiratory distress Extremity: Present: other - LLE--> SILT, distal cap refill brisk, 5/5 PF/DF, mild drainage on middle and proximal bandage, diffuse ttp over hip Eye contact: Present: cooperative Thoughts: Present: normal thought pattern Cauti Physician Documentation - Urinary Catheter Management Urethral (Vasquez) Urethral Indwelling: No Date of Insertion: 12/20/18 Time of Insertion: 18:45 Date of Removal: 12/22/18 Time of Removal: 12:04 Assessment/Plan Plan Narrative: -83 y/o female post-op day #2 s/p left ORIF with cephalomedullary nailing of proximal femur fracture - WBAT with assistance PRN - PT/OT progress as tolerated - PO diet as tolerated - PO pain medication PRN - DVT prophylaxis: lovenox, SCDs in bed, josr hose - Monitor surgical dressing, change PRN - Hgb 6.6, medicine plan to transfuse 2 units - Chronic medical conditions per medicine - Problems/Diagnosis (1) Fracture, proximal femur Problem: Acute Qualifiers: Encounter type: initial encounter Fracture type: closed Laterality: left Qualified Code(s): S72.002A - Fracture of unspecified part of neck of left femur, initial encounter for closed fracture
[2018-12-24 08:12] LABS: Iron 40 mcg/dL (35-120); Transferrin Sat. (% Sat.) 21 % (15-55)
[2018-12-24] MEDS: amLODIPine BESYLATE 10 MG TABLET PO SCH (08:25)
[2018-12-24] MEDS: SERTRALINE HCL 100 MG TABLET PO SCH (08:25)
[2018-12-24] MEDS: FERROUS SULFATE 325 MG TABLET PO SCH (08:28)
[2018-12-24] MEDS: ENOXAPARIN SODIUM 40 MG/0.4 ML SYRG SC SCH (08:28)
[2018-12-24] MEDS: MAGNESIUM HYDROXIDE 30 ML UDC PO PRN (11:15)
--- NOTE | 2018-12-24 16:07 | PN ---
Chidi Note - Interim Date: 12/24/18 Time: 08:00 Narrative: 12/24/18 16:01 Patient reports no acute events. She has been ambulating with PT. She notes her pain is improved from yesterday. She reports no acute events or symptoms. Exam today reveals significant ttp about left hip, bandages removed, no active drainage, SILT, 5/5 DF/PF, distal capillary refill brisk. -83 y/o female post-op day #3 s/p left ORIF with cephalomedullary nailing of proximal femur fracture - WBAT with assistance PRN - PT/OT progress as tolerated - PO diet as tolerated - PO pain medication PRN, [place] 1-2 tabs every 4-6 hours PRN PO - DVT prophylaxis: lovenox for 4 weeks, then transition to 325mg aspirin daily for 6 weeks josr hose - Surgical dressing changed, continue dressing changes every 3 days PRN if drainage - Hgb 8.6 - F/u in orthopedic outpatient clinic at 2 weeks post-op with Dr. Farooq - Dispo: discharge to [facility] facility for further OT/PT
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
[2018-12-24] MEDS ORDERED: BISACODYL 5 MG TABLET.DR PO STA (18:42)
[2018-12-24] MEDS ORDERED: METHYLPREDNISOLONE 4 MG/TAB TAB.DS.PK PO SCH (21:00)
[2018-12-24] MEDS: SENNOSIDES/DOCUSATE SODIUM 1 TAB TABLET PO SCH (21:39)
[2018-12-25] MEDS: HYDROcodone/ACETAMINOPHEN 1 EACH TABLET PO PRN (02:29)
[2018-12-25 05:10] LABS: Hematocrit 28.2 % (37.0-47.0); Hemoglobin 9.4 gm/dL (12.5-16.0); Mean Cell Volume 94.9 fl (78-100); Mean Corpuscular Hemoglobin 31.6 pg (27-31); Mean Corpuscular Hgb Conc 33.3 g/dl (32-36); Mean Platelet Volume 8.6 fl (8-12.5); Neutrophil # 4.6 K/mm3 (1.3-6.0); Neutrophil % 72.8 % (42-75.0); Platelet Count 165 K/mm3 (150-450); Red Blood Count 2.97 M/mm3 (4.2-5.4); Red Cell Distribution Width 13.1 % (11.5-14.0); White Blood Count 6.3 K/mm3 (4.0-10.5)
[2018-12-25 05:32] LABS: Albumin * 2.3 gm/dl (3.4-5.0); BUN/Creatinine Ratio 21.4 (9.0-21.6); Bilirubin, Total 0.8 mg/dL (0.0-1.1); Ca. Corrected For Albumin 9.7 mg/dL (8.4-10.2); Calcium * 8.7 mg/dL (7.9-10.9); Carbon Dioxide 31.9 mmol/L (24-32.6); Potassium 3.9 mmol/L (3.4-4.6); Total Protein 5.7 gm/dL (6.2-8.2)
[2018-12-25] MEDS ORDERED: METHYLPREDNISOLONE 4 MG TABLET PO SCH (07:00)
[2018-12-25] MEDS: FERROUS SULFATE 325 MG TABLET PO SCH (08:49)
[2018-12-25] MEDS: amLODIPine BESYLATE 10 MG TABLET PO SCH (08:49)
[2018-12-25] MEDS: SERTRALINE HCL 100 MG TABLET PO SCH (08:49)
[2018-12-25] MEDS: ENOXAPARIN SODIUM 40 MG/0.4 ML SYRG SC SCH (08:50)
--- NOTE | 2018-12-25 09:15 | DS ---
(1) Fracture, proximal femur Problem: Acute Qualifiers: Encounter type: initial encounter Fracture type: closed Laterality: left Qualified Code(s): S72.002A - Fracture of unspecified part of neck of left femur, initial encounter for closed fracture (2) Insomnia Problem: Acute Qualifiers: Insomnia type: primary Qualified Code(s): F51.01 - Primary insomnia (3) Hypertension Problem: Chronic Qualifiers: Hypertension type: essential hypertension Qualified Code(s): I10 - Essential (primary) hypertension (4) Constipation Problem: Acute Qualifiers: Constipation type: slow transit constipation Qualified Code(s): K59.01 - Slow transit constipation Description of Stay: Padmini Byrne is an 83-year-old female patient who slipped [place] the ice on her property while going down to get her mail the mailbox. She fell onto her left hip and sustained a comminuted closed fracture of the left proximal femur. She was exposed to the elements for about an hour before being found. She was brought to the hospital per EMS and evaluated. Fortunately she was hypothermic. The patient was admitted and taken to surgery for an ORIF of the left hip. She had no intraoral or postoperative complications. She did lose a lot of blood and her hemoglobin dropped from 13.9 g to 7 g after surgery. The next day she dropped to 6.6 g and was transfused with 2 units of packed red blood cells bringing her blood count back up to 8.3 g. She has been standing and transferring and walking with her walker in the halls and seems to be tolerating that well. She complains of some discomfort in the left hip but denies actual pain. Has been no postoperative fevers and no evidence of infection. There is no evidence of any further bleeding. Guaiac stools were negative. She has had some constipation and has not had a BM in the last 2 days. She was given Dulcolax tablets 2 by mouth last night. She will be given a fleets enema this morning after breakfast. She will be transferred to [facility] and to their skilled unit for further rehabilitation of her hip. Apparently her is disabled and in a wheelchair. He will be admitted to the [facility] tomorrow. Until they can both go back to their home. Procedures Performed: see notes below List Procedures: ORIF of the left hip Results and Findings: Lab Pending Results 12/20/18 16:00: Creatine Kinase 106 12/20/18 16:35: WBC 11.5 H, RBC 4.40, Hgb 13.9, Hct 41.5, MCV 94.3, MCH 31.6 H, MCHC 33.5, RDW 12.1, Plt Count 185, MPV 8.8, Immature Gran % (Auto) 0.30, Immature Gran # (Auto) 0.04 H, Neutrophils % 83.3 H, Lymphocytes % 9.5 L, Monocytes % 5.9, Eosinophils % 0.7, Basophils % 0.3, Nucleated RBC % 0.0, Neutrophils # 9.5 H, Lymphocytes # 1.09 L, Monocytes # 0.7, Eosinophils # 0.1, Absolute Basophils 0.0 12/20/18 16:35: Sodium 137, Plasma Sodium 138, Potassium 4.5, Chloride 100, Carbon Dioxide 29.4, Anion Gap 12.1, BUN 26 H, Creatinine 0.79, Est GFR (Non-Af Amer) 74, BUN/Creatinine Ratio 32.9 H, Random Glucose 137 H, Calcium 9.4, Calcium Adj for Albumin 9.1, Total Bilirubin 0.3, AST 24, ALT 21, Alkaline Phosphatase 73, Total Protein 7.6, Albumin 4.0 12/20/18 16:35: Blood Type A Positive, Antibody Screen Negative 12/20/18 18:47: Urine Color Pale yellow, Urine Appearance Clear, Urine pH 7.5, U r Specific [place] 1.020, Urine Protein Negative, Urine Glucose (UA) 100 H, Urine Ketones Negative, Urine Blood Negative, Urine Nitrate Negative, Urine Bilirubin Negative, Urine Urobilinogen Normal, Ur Leukocyte Esterase Negative, Urine RBC 0-5, Urine WBC 0-5, Ur Epithelial Cells None seen, Amorphous Sediment Trace, Urine Bacteria Trace, Urine Culture Comments Culture to follow 12/22/18 06:15: WBC 4.8 D, RBC 2.21 L, Hgb 7.0 L* D, Hct 21.0 L* D, MCV 95.0, MCH 31.7 H, MCHC 33.3, RDW 12.6, Plt Count 105 L, MPV 9.0 12/22/18 06:15: Sodium 137, Plasma Sodium 138, Potassium 3.9, Chloride 102, Carbon Dioxide 27.9, Anion Gap 11.0, BUN 15, Creatinine 0.64, Est GFR (Non-Af Amer) 95 D, BUN/Creatinine Ratio 23.4 H, Random Glucose 139 H, Calcium 8.3 12/23/18 05:25: WBC 6.5 D, RBC 2.06 L, Hgb 6.6 L*, Hct 19.6 L*, MCV 95.1, MCH 32.0 H, MCHC 33.7, RDW 12.6, Plt Count 120 L, MPV 9.3 12/23/18 05:25: Sodium 137, Plasma Sodium 138, Potassium 4.1, Chloride 102, Carbon Dioxide 29.3, Anion Gap 9.8, BUN 12, Creatinine 0.67, Est GFR (Non-Af Amer) 90, BUN/Creatinine Ratio 17.9, Random Glucose 153 H, Calcium 8.3 12/23/18 05:25: Blood Type A Positive, Antibody Screen Negative, Crossmatch See Detail 12/23/18 08:00: Hgb 9.3 L, Hct 27.2 L 12/24/18 05:15: WBC 8.4 D, RBC 2.79 L, Hgb 8.9 L, Hct 26.2 L, MCV 93.9, MCH 31.9 H, MCHC 34.0, RDW 13.1, Plt Count 139 L, MPV 9.3, Immature Gran % (Auto) 1.30 H, Immature Gran # (Auto) 0.11 H, Neutrophils % 77.5 H, Lymphocytes % 9.3 L, Monocytes % 11.8 H, Eosinophils % 0.0, Basophils % 0.1, Nucleated RBC % 0.0, Neutrophils # 6.5 H, Lymphocytes # 0.78 L, Monocytes # 1.0, Eosinophils # 0.0, Absolute Basophils 0.0 12/24/18 05:15: Sodium 138, Plasma Sodium 139, Potassium 4.3, Chloride 102, Carbon Dioxide 30.2, Anion Gap 10.1, BUN 12, Creatinine 0.60, Est GFR (Non-Af Amer) 102, BUN/Creatinine Ratio 20.0, Random Glucose 132 H, Calcium 8.4, Calcium Adj for Albumin 9.5, Total Bilirubin 0.5, AST 56 H, ALT 214 H, Alkaline Phosphatase 61, Total Protein 5.5 L, Albumin 2.2 L 12/24/18 05:15: Absolute Retic 0.0761, Percent Retic 2.7 H, Immature Retic Fraction 39.9 H, Retic Hgb Content 32.6 12/24/18 05:15: Iron 40, TIBC 190 L, Transferrin % Sat 21 12/24/18 05:15: Ferritin 166 12/25/18 05:09: WBC 6.3 D, RBC 2.97 L, Hgb 9.4 L, Hct 28.2 L, MCV 94.9, MCH 31.6 H, MCHC 33.3, RDW 13.1, Plt Count 165, MPV 8.6, Immature Gran % (Auto) 1.40 H, Immature Gran # (Auto) 0.09 H, Neutrophils % 72.8, Lymphocytes % 13.2 L, Monocytes % 12.1 H, Eosinophils % 0.2, Basophils % 0.3, Nucleated RBC % 0.0, Neutrophils # 4.6, Lymphocytes # 0.84 L, Monocytes # 0.8, Eosinophils # 0.0, Absolute Basophils 0.0 12/25/18 05:09: Sodium 137, Plasma Sodium 137, Potassium 3.9, Chloride 101, Carbon Dioxide 31.9, Anion Gap 8.0, BUN 12, Creatinine 0.56, Est GFR (Non-Af Amer) 110, BUN/Creatinine Ratio 21.4, Random Glucose 121 H, Calcium 8.7, Calcium Adj for Albumin 9.7, Total Bilirubin 0.8, AST 44, ALT 162 H, Alkaline Phosphatase 65, Total Protein 5.7 L, Albumin 2.3 L Discharge Location: [facility] Disposition: SNF Condition: Fair Face to Face Encounter completed per CMS Guidelines: Yes Level of Care: SNF Discharge Activity: Activity as tolerated, Weight bearing Discharge Diet: General/regular food, High Fiber Fci Therapy: Physicial Therapy, Occupation Therapy Referrals: Madina Cardona MD [Primary Care Provider] - Problem Oriented Discharge Instructions to Patient/Family: Hip Rehabilitation After Surgery Prescriptions (Any new or edited meds): diphenhydrAMINE HCL [Benadryl] 25 mg PO HS PRN #30 cap PRN Reason: Sleep Ferrous Sulfate 325 mg PO DAILY #30 tab HYDROcodone/ACETAMINOPHEN [[place] 5-325] 1 ea PO Q6H PRN #60 tab PRN Reason: Moderate Pain (Pain Scale 4-6) Mag Hydrox/Aluminum Hyd/Simeth [Maalox Plus Suspension] 30 ml PO Q6H PRN #120 udc PRN Reason: Indigestion Magnesium Hydroxide [Milk Of Magnesia] 30 ml PO DAILY PRN #120 udc PRN Reason: Constipation Sennosides/Docusate Sodium [Senna-S Laxative Tablet] 2 ea PO HS #60 tab Sennosides/Docusate Sodium [Senokot-S] 2 tab PO HS #60 tab Complete Home Medications List: Complete Home Medication List: Beta-Carotene(A) W-C , E/Min [Ocuvite] 1 tab PO DAILY 07/02/15 Calcium Carbonate/Vitamin D3 [Calcium 600 + D Tablet] 2 each PO DAILY 07/02/15 [place]-3 Fatty Acids/Fish Oil [Fish Oil 1,000 mg Capsule] 1 each PO DAILY 07/02/15 Amlodipine [place] 10 mg PO DAILY 02/02/16 Acetaminophen/Diphenhydramine [Tylenol Pm Ex-Strength Caplet] 1 ea PO PRN PRN 12/20/18 Aspirin [Lo-Dose Aspirin EC] 81 mg PO DAILY 12/20/18 Metoprolol Succinate 50 mg PO DAILY 12/21/18 Sertraline HCl [Zoloft] 100 mg PO DAILY 12/21/18 Acetaminophen [Tylenol] 1,000 mg PO Q6H PRN tab 12/25/18 Ferrous Sulfate 325 mg PO DAILY #30 tab 12/25/18 HYDROcodone/ACETAMINOPHEN [[place] 5-325] 1 ea PO Q6H PRN #60 tab 12/25/18 Mag Hydrox/Aluminum Hyd/Simeth [Maalox Plus Suspension] 30 ml PO Q6H PRN #120 udc 12/25/18 Magnesium Hydroxide [Milk Of Magnesia] 30 ml PO DAILY PRN #120 udc 12/25/18 Sennosides/Docusate Sodium [Senna-S Laxative Tablet] 2 ea PO HS #60 tab 12/25/18 Sennosides/Docusate Sodium [Senokot-S] 2 tab PO HS #60 tab 12/25/18 diphenhydrAMINE HCL [Benadryl] 25 mg PO HS PRN #30 cap 12/25/18
[2018-12-25 12:17] VITALS: BP 120/54
[2018-12-26] MEDS ORDERED: METHYLPREDNISOLONE 4 MG TABLET PO SCH (07:00)
[2018-12-27] MEDS ORDERED: METHYLPREDNISOLONE 4 MG TABLET PO SCH (07:00)
== END 2018-12-25 12:15 | DRG 481 ==
LOC: ER 16:19 → MS 18:38
PROVIDERS: ADMIT Family Medicine; ATTEND Family Medicine
DX: Z87.891 Personal history of nicotine dependence; Y92.017 Garden or yard in single-family (private) house as the place of occurrence of the external cause; K59.00 Constipation, unspecified; F41.9 Anxiety disorder, unspecified; D62 Acute posthemorrhagic anemia; I10 Essential (primary) hypertension; S72.142A Displaced intertrochanteric fracture of left femur, initial encounter for closed fracture; G47.00 Insomnia, unspecified; W00.0XXA Fall on same level due to ice and snow, initial encounter
CPT/HCPCS: 36415; 70450; 71010; 71020; 71045; 71046; 72125; 72170; 73552; 76000; 80048; 80053; 81001; 82272; 82550; 82728; 83540; 83550; 85014; 85018; 85025; 85027; 85045; 86850; 86900; 87086; 93005; 96374; 97110; 97116; 97161; 97165; 97530; 99285; P9016